=== PATIENT | female | born 1965 | race Caucasian/White ===

== ENCOUNTER 2024-06-26 06:33 | Day surgery (SDC) | payer BC, SELFPAY ==
--- NOTE | 2024-06-25 13:46 | PTCARENOTE ---
No ECG needed per Dr. Cullen.
[2024-06-26] VITALS (17 sets, daily range): BP systolic 91–129; BP diastolic 42–79; BMI 29.1
[2024-06-26] MEDS: CELEBREX 200 MG PO (13:29)
[2024-06-26] MEDS: TYLENOL 1000 MG PO ×2 (13:29→22:36)
[2024-06-26] MEDS: NEURONTIN 300 MG PO (13:29)
[2024-06-26] MEDS: HEPARIN 5000 UNITS SC (13:30)
--- NOTE | 2024-06-26 13:39 | CON.CAR ---
Addendum entered and electronically signed by Marianna Mireles DO 06/26/24 16:27:
I saw and examined the patient.
The Soap Maker's note was reviewed and I agree with the note.
Comment: Patient seen and examined in preoperative holding prior to planned robotic assisted laparoscopic exploration of the abdomen with plan for resection of a pelvic mass and possible BSO with Dr. Curtis today. Patient does not have a cardiac
history but does see her family physician regularly. She has no cardiac history per her report. In preop holding nursing found EKGs from [facility] emergency department earlier this month which showed atrial fibrillation. Patient
denies seeing cardiology in [facility]. She apparently was provided Lopressor 12.5 mg twice daily but has not taken this medication. She denies chest pain or pressure, shortness of breath/dyspnea on exertion, palpitations, fast
heart rates, dizziness/lightheadedness, syncope or near syncope. No history of stroke or TIA. EKG done today in preop holding was normal sinus rhythm and a normal tracing.
General: No acute distress, AAOX3
Neck: Negative JVD
Heart: Regular, Negative S3 positive S1/S2, Negative S4, No murmur
Lungs: CTA b/l, negative wheezes/rales/rhonchi
Abd: Positive BS, NT/ND, neg rebound/rigidity/guarding
Ext: Negative cyanosis/clubbing/edema
Neuro: nonfocal
Plan:
-Presents 06/26/2024 for elective robotic assisted laparoscopic exploration of abdomen with resection of pelvic mass possible bilateral salpingo-oophorectomy
-Recent diagnosis of asymptomatic paroxysmal atrial fibrillation discovered while in emergency department at [facility] 06/12/2024; patient reports that she was unaware of this diagnosis. We discussed diagnosis of atrial fibrillation, pathophysiology,
possible symptoms, and treatment options. We also discussed stroke risk and stroke risk reduction.
-EKG today shows sinus rhythm without ischemic changes.
-CHADS2 Vas score 1 (female)
-Patient is stable from cardiac standpoint to proceed with surgical intervention. No additional testing needed. Would monitor on telemetry intraoperatively and postoperatively. If patient should develop paroxysmal atrial fibrillation IV Lopressor
can be provided as needed.
-Would recommend outpatient cardiology follow-up for echocardiogram as well as outpatient monitor.
-Provided information on discharge instructions for [facility] cardiology as well as [facility] in [place] which is closer to the patient's house.
Original Note:
Consultation
Consultation Request
Date/Time Consultation Requested: 06/26/2024
Date/Time Consultation Performed: 06/26/2024
Requesting Provider: Dr. Jose Harkins
Performing Provider: Jill Meraz PA-C for Dr. Marianna Mireles
Reason for Consultation: Paroxysmal atrial fibrillation/flutter
Medical History
-
History of Present Illness:
Patient is a 59-year-old female with past medical history significant for abnormal uterine bleeding status post hysterectomy 2009, appendicitis with appendectomy 2018, melanoma excision 2015, hyperlipidemia, vitamin D deficiency and paroxysmal
atrial fibrillation. Patient was seen at [facility] ER 06/12/2024 with severe abdominal pain radiating into flank and was diagnosed with ovarian mass. While in the emergency department she had EKGs which demonstrated asymptomatic atrial
fibrillation/flutter with controlled ventricular response. This was a new diagnosis for her. She was provided Lopressor 12.5 mg twice a day upon discharge with recommendation to follow-up with outpatient cardiology. She presented back to emergency
department several days later with abdominal/flank pain and once taken to the OR for laparoscopic attempted resection of ovarian mass. Per her report she was noted to be back in sinus rhythm. She presents today for robotic assisted laparoscopic
exploration of the abdomen with plan for resection of pelvic mass and possible bilateral salpingo-oophorectomy. Cardiology being asked to see patient given recent diagnosis of paroxysmal atrial fibrillation/flutter. EKG today shows normal sinus
rhythm without evidence of ischemia.
Patient denies any past history of any cardiac problems. 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 She does have a history of snoring but denies sleep apnea. She denies chest pain, shortness
breath, dizziness, lightheadedness, edema, orthopnea, PND. Her father had a stroke but she denies any family history of any cardiac issues.
Past Medical History
Past Medical History: Other (see HPI)
Past Surgical History: Appendectomy (2019) and Gynecological (Hysterectomy 2010)
Social History
Tobacco: Non-Smoker
Alcohol: Occasional
Drug: None
Personal:
Living: With Family
Employment: Employed
Family History
Family History: Other (Father at 84 of pulmonary fibrosis, had stroke. Mother unknown/estranged)
Allergies / Home Medications
Allergy/AdvReac Type Severity Reaction Status Date / Time
No Known Allergies Allergy Verified 06/26/24 12:47
�Medication �Instructions �Recorded �Confirmed �Type
polyethylene glycol 3350 17 gram 17 g PO PRE OP 06/25/24 06/26/24 History
oral powder packet (Miralax)
Review of Systems
-
History Source: Patient
All other systems: Negative unless noted
Physical Exam
Vital Signs
Temp Pulse Resp BP Pulse Ox
98.2 F 64 16 122/61 98
06/26/24 12:50 06/26/24 12:50 06/26/24 12:50 06/26/24 12:50 06/26/24 12:50
GEN: No distress, awake, Ox3
HEENT: supple, anicteric, mmm
LUNGS: CTA, no wheezes/rales
CV: Reg, S1/S2, no murmur, rub or gallop
ABD: soft, BS+, NT/ND
EXT: No edema, clubbing or cyanosis
NEURO: Gross non-focal
SKIN: No rash, warm, dry, pink
Impression / Plan
-
PCP: Dr. Khang Weber
Etymology Teacher: None prior to arrival, initial consultation Dr. Marianna Mireles
Impression:
Presents 06/26/2024 with pelvic mass for robotic assisted laparoscopic exploration of abdomen with resection of pelvic mass possible bilateral salpingo-oophorectomy
Paroxysmal atrial fibrillation (new diagnosis June 2024)
CHADS2 Vas score 1 (female)
Abnormal uterine bleeding status post hysterectomy 2009
Appendicitis with appendectomy 2018
Melanoma excision 2015
Hyperlipidemia
Vitamin D deficiency
Plan:
-Presents 06/26/2024 with pelvic mass for robotic assisted laparoscopic exploration of abdomen with resection of pelvic mass possible bilateral salpingo-oophorectomy
-Recent diagnosis of asymptomatic paroxysmal atrial fibrillation discovered while in emergency department at [facility] 06/12/2024. Patient was started on Lopressor 12.5 mg twice a day. Patient reports she took several doses but has not taken it over the
last week.
-EKG today shows sinus rhythm without ischemic changes.
-CHADS2 Vas score 1 (female)
-Patient is stable from cardiac standpoint to proceed with surgical intervention. No additional testing needed. Would monitor on telemetry intraoperatively and postoperatively. If patient should develop paroxysmal atrial fibrillation IV Lopressor
can be provided as needed.
-Would recommend outpatient cardiology follow-up for echocardiogram as well as outpatient monitor.
-Provided information on discharge instructions for [facility] cardiology as well as [facility] in [place] which is closer to the patient's house.
[facility] 06/26/2024:
Patient is a 59-year-old female with past medical history significant for abnormal uterine bleeding status post hysterectomy 2009, appendicitis with appendectomy 2018, melanoma excision 2015, hyperlipidemia, vitamin D deficiency and paroxysmal
atrial fibrillation. Patient was seen at [facility] ER 06/12/2024 with severe abdominal pain radiating into flank and was diagnosed with ovarian mass. While in the emergency department she had EKGs which demonstrated asymptomatic atrial
fibrillation/flutter with controlled ventricular response. This was a new diagnosis for her. She was provided Lopressor 12.5 mg twice a day upon discharge with recommendation to follow-up with outpatient cardiology. She presented back to emergency
department several days later with abdominal/flank pain and once taken to the OR for laparoscopic attempted resection of ovarian mass. Per her report she was noted to be back in sinus rhythm. She presents today for robotic assisted laparoscopic
exploration of the abdomen with plan for resection of pelvic mass and possible bilateral salpingo-oophorectomy. Cardiology being asked to see patient given recent diagnosis of paroxysmal atrial fibrillation/flutter. EKG today shows normal sinus
rhythm without evidence of ischemia.
Patient denies any past history of any cardiac problems. 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 She does have a history of snoring but denies sleep apnea. She denies chest pain, shortness
breath, dizziness, lightheadedness, edema, orthopnea, PND. Her father had a stroke but she denies any family history of any cardiac issues.
Data Reviewed
-
EKG: Report Reviewed by me, Discussed with Physician, Discussed with Nurse, Discussed with Patient and Discussed with Family
Labs: Labs Reviewed by me
Old Records: Reviewed
--- NOTE | 2024-06-26 17:27 | OR.RPT ---
Operative Report
Operative Report
Date of surgery June 26, 2024
Preoperative diagnosis: Right pelvic mass, right lower quadrant and lower abdominal pain, prior failed laparoscopy for attempted removal
Postoperative diagnosis: Right ovarian mass with hemorrhage and edema, histology pending; extensive pelvic adhesions
Surgeon: Eamon Curtis MD
Assist: Joey Newberry PA-C, AFSHIN Amanda
Anesthesia: General Endotracheal intubation
Procedure:
Robotic assisted laparoscopic bilateral salpingo-oophorectomy, pelvic washings
Mini laparotomy for extraction of specimen
Robotic assisted laparoscopic enterolysis
TAP block
Estimated blood loss 20 cc
Complications none
Procedure in detail: This patient was brought to the operating room and placed in supine position general anesthesia was administered she was intubated without any difficulty she was placed in lithotomy position using yellowfin stirrups and prepped
on the abdomen perineum and vagina and upper thighs. Arms were wrapped in foam and placed along the patient's side and protected across all joints. Alvarado catheter was inserted under sterile conditions for drainage of the bladder. Attention was
turned abdominally after she was draped. Timeout procedure was carried out she received combination of Ancef and Flagyl prophylactically. She had received DVT prophylaxis with heparin in the preoperative area. Veress needle was inserted just
below the left subcostal margin and insufflation with CO2 was performed up to pressure of 15 mmHg. Next 8 mm Robotic port was inserted 25 cm cephalad to symphysis pubis in the mid epigastrium. 8 mm robotic ports were placed under direct
visualization in the left upper quadrant and right upper quadrant as well as right and left lateral abdomen.
Inspection of upper abdomen reveals liver stomach and spleen right and left diaphragms falciform ligament to be within normal limits omentum is unremarkable with a thin band of adhesion to umbilicus where recent laparoscopy was completed. Paracolic
gutters and peritoneal surfaces are devoid of any evidence of metastatic disease.
Tap block was performed by injection under direct visualization using combination of 0.5% ropivacaine 30 cc admixed with 30 cc sterile water below rectus muscle and above the peritoneum 2 fingerbreadths below the costal margins laterally.
Patient was placed in 28 degree Trendelenburg and robotic system
Was docked. Attention was turned to the pelvis sigmoid colon was adherent to the bladder and these adhesions were filmy and inflammatory in nature and they were released. There was a loop of small bowel that is adherent to the mesentery of the
sigmoid colon this loop is terminal ileum and was also from the colon and the ovarian mass with gentle traction and sharp dissection. I opened the right and left lateral pelvic peritoneum and broad ligament and identified the old round
ligaments remnants as this patient has had prior hysterectomy. Both of these were sealed and divided and the incisions were extended in the lower portion of the paracolic gutters. We identified the course of the ureter in the retroperitoneum on
both sides and was able to identify infundibulopelvic ligaments containing ovarian artery and veins and skeletonized them. These pedicles were sealed and divided. Following this we worked along the left side. Left tube and ovary was detached from
the larger mass that was filling the posterior cul-de-sac. Once the left tube and ovary was completely detached it was placed in an endoscopic bag for retrieval. The left ovary appeared to be normal but the fallopian tube appeared to be inflamed
and hydrosalpinx. Attention was turned to the right ovarian mass which was gently retracted from right pelvic peritoneum and left pelvic peritoneum as well as anterior and posterior cul-de-sac peritoneum, at 1 point the mass drained spontaneously
because of fibrotic adhesion to the vaginal cuff, once the mass was completely detached it was immediately placed in an endoscopic bag. There were inflammatory adhesions to the sigmoid colon which were biopsied and submitted to pathology and
additional posterior cul-de-sac remnants of the mass that was also detached and submitted to pathology. There was no other abnormal implants in the pelvis. We went ahead and irrigated the pelvis copiously and prepared for mini laparotomy to
extract our specimen. The patient had a prior infraumbilical incision this was extended to approximately 3 cm and opened along the skin subcutaneous tissue and fascia in both the right tube and ovary left tube and ovary was removed and submitted to
pathology for frozen section in the meantime an Basil retractor was placed frozen section reveals presence of a cyst with hemorrhage and edema, microscopic evaluation shows some atypia but definitive adenocarcinoma is not seen and defer to final
pathology. Because of this report I did not perform any additional staging biopsies. I went ahead and irrigated the pelvis copiously and established good hemostasis. We went ahead and sprayed Elvie along the inflammatory surfaces of posterior
cul-de-sac and right and left pelvis. All laparoscopic instruments were removed and the robotic system was undocked and pneumoperitoneum was released. The Basil retractor was removed the fascia for the extraction site was closed with a running
suture of STRATAFIX starting from right to the left and the second layer back to the right side. The skin incisions were closed with 4-0 Monocryl in a subcuticular fashion. All incisions were injected with 0.25% bupivacaine at the completion of
the procedure. Patient was awakened extubated and returned back to recovery room stable awake and extubated condition. Counts of labs instruments and needle was correct x 2. I removed the Alvarado catheter and a sponge stick from the vagina at the
completion of the case.
Disposition to PACU stable awake extubated
[2024-06-26] MEDS: DILAUDID 0.5 MG IV ×2 (17:40→18:18)
[2024-06-26] MEDS: TORADOL 15 MG IV (18:06)
--- NOTE | 2024-06-26 19:07 | HPS.HSE ---
Family Physician
-
Family Physician: Khang Weber,DO
Chief Complaint
-
medical managment
History of Present Illness
59-year-old female with past medical history significant for abnormal uterine bleeding status post hysterectomy 2009, appendicitis with appendectomy 2018, melanoma excision 2015, hyperlipidemia, vitamin D deficiency and paroxysmal atrial
fibrillation admitting for medical management. Patient was seen at [facility] ER 06/12/2024 with severe abdominal pain radiating into flank and was diagnosed with ovarian mass. While in the emergency department she had EKGs which demonstrated asymptomatic
atrial fibrillation/flutter with controlled ventricular response. This was a new diagnosis for her. She was provided Lopressor 12.5 mg twice a day upon discharge with recommendation to follow-up with outpatient cardiology. she never took
metoprolol as her heart rate was stable since then. She underwent robotic assisted laparoscopic exploration of the abdomen resection of pelvic mass and possible bilateral salpingo-oophorectomy. she had brief period of atrial fib during recovery
but since then remaining NSR. patient denied any [place], dizzy. denied fever, chills, chest pain, sob. denied dysuria or hematuria.
admitting for further management.
Medical History
Past Medical History
Past Medical History: Reports Other
Additional Past Medical History:
none
Past Surgical History: Reports Other
Additional Past Surgical History:
appendectomy
hysterectomy
Social History
Tobacco: Non-smoker
Alcohol: None
Drug: None
Family History
Family History: Not pertinent
Allergies / Home Medications
Allergies reflects when Allergies were last updated in [employer].
Home Medications with original date entered in [employer]
Allergy/Medication List:
Allergies
Allergy/AdvReac Type Severity Reaction Status Date / Time
No Known Allergies Allergy Verified 06/26/24 12:47
Home Medications
polyethylene glycol 3350 17 gram oral powder packet (Miralax) 17 g PO PRE OP 06/25/24
Review of Systems
-
Constitutional: Reports No Symptoms
EENT: Reports No Symptoms
Respiratory: Reports No Symptoms
Cardiac: Reports No Symptoms
Abdomen/GI: Reports No Symptoms
: Reports No Symptoms
Musculoskeletal: Reports No Symptoms
Skin: Reports No Symptoms
Neurological: Reports No Symptoms
Endocrine: Reports No Symptoms
Hematologic/Lymphatic: Reports No Symptoms
Psych: Reports No Symptoms
Physical Exam
Vital Signs
Vital Signs
Temp Pulse Resp BP Pulse Ox
97.9 F 70 17 97/53 96
06/26/24 17:19 06/26/24 19:00 06/26/24 19:00 06/26/24 19:00 06/26/24 19:00
Physical Exam
General: Well Developed, Well Nourished and No Apparent Distress
HEENT: NormoCephalic, Moist mucous membranes and Atraumatic
Respiratory: Clear
Cardiac: S1/S2 and Regular Rhythm; No Murmur or Rub
GI: Soft, Non Tender, Non Distended, Normal Bowel Sounds and Other (lap site); No Organomegaly
Rectal: Deferred by Provider
Musculoskeletal: No Clubbing, No Cyanosis and No Edema
Skin: No Rash
Neuro: AO x 3 and Nonfocal/grossly intact
Psych: Calm
Data Reviewed
-
Lab Data: Labs Reviewed by me
Impression/Plan
-
# Paroxysmal atrial fib
-EKG was sinus rhythm without ischemic change
-As per cardiology continue to monitor, if should develop paroxysmal A-fib IV Lopressor can be provided as needed
-Patient to follow-up with outpatient cardiology for echocardiogram as well as outpatient monitor
# Large cystic mass
-Into robotic assisted laparoscopic bilateral salpingo oophorectomy, pelvic washing
-FURNITURE SALES ASSOCIATE following patient
-pain management as per surgery
#acute hypoxia
-requiring 2l
-chest x ray obtain
-continue supplemental oxygen to keep sat>92
-wean as tolerated
#anemia likely chronic
-hgb 10.6
-no active
#DVT prophylaxis
-scd
#CODE status
-full code
[2024-06-26 19:31] LABS: Hematocrit 32.6 % (37.0-47.0); Hemoglobin 10.6 g/dL (12.0-16.0); Mean Corp Hgb Conc. 32.5 g/dL (33.0-37.0); Mean Corpuscular Hgb 24.9 pg (27.0-31.0); Mean Corpuscular Volume 76.5 fL (81.0-99.0); Mean Platelet Volume 9.5 fL (7.4-10.4); Platelet Count 278 10^3/uL (130-400); Red Blood Cell Count 4.26 10^6/uL (4.20-5.40); Red Cell Dist. Width 14.6 % (11.5-14.5); White Blood Cell Count 9.4 10^3/uL (4.8-10.8)
[2024-06-26 19:44] LABS: Blood Urea Nitrogen 11 mg/dl (7-17); Calcium 7.9 mg/dl (8.4-10.2); Carbon Dioxide 23 mmol/L (22-30); Chloride 104 mmol/L (98-107); Estimated Creatinine Clearance 84 ml/min; Glucose 130 mg/dl (70-99); Magnesium 2.2 mg/dl (1.6-2.3); Potassium 4.1 mmol/L (3.5-5.1); Sodium 137 mmol/L (135-145); eGFR > 60.00
--- NOTE | 2024-06-26 20:20 | W.PN.UPDATE ---
Update Note
Progress Note Update
This is an addendum to the H&P written by she was sent on 06/26/2024.
59-year-old female past medical history of abnormal uterine bleeding status post partial hysterectomy 2009, melanoma excision, hyperlipidemia, recently diagnosed with paroxysmal atrial fibrillation in 06/12 in the emergency room at [facility] (unknown to
her) for abdominal pain at which time she was found to have ovarian mass.
Patient underwent robotic assisted laparoscopic bilateral salpingo-oophorectomy today and afterwards developed postoperative intermittent atrial fibrillation with normal heart rate. She also had low oxygen saturation requiring 2 L of oxygen. Blood
pressures are 90s systolic.
Patient was seen by cardiology prior to surgery recommending as needed IV Lopressor for tachycardia as needed.
Observation overnight. Continue IV fluids. Check chest x-ray to rule out CHF.
--- NOTE | 2024-06-26 22:00 | PTCARENOTE ---
Pt received from PACU via stretcher. Pulled over to bed x2 without incident. AAOx3, pleasant. Telemetry = afib (100s). Oriented to surroundings and plan of care discussed. Admission and assessment completed. Pt consumed 50% of boxed lunch
provided. ACCOUNTING PROFESSOR covering house contacted to address pain medication orders - electronic orders received (refer to MAR). 8 lap sites to abdomen - intact/ecchymotic. Pt OOB w/assist x1 to void. Voided 100 mL clear yellow (voided 300 mL in PACU
prior to arrival). Knee high SCDs in place. #18 LH w/NSS at 80mL. Call powell within reach. Plan of care ongoing.
--- NOTE | 2024-06-26 22:18 | W.PN.GYNONC ---
Today's Communication
-
NA
Impression / Plan
-
Hospitalist consultation, appreciate assistance with care
Observe overninght
telemetry
incentive spirometer
lopressor IV as per cardiology
lytes normal, no change in Hgb
general diet
Subjective / Interval History
-
POD 0
s/p robotic Lap BSO, entrloysis, minilap
was noted to have slow O2 requiring 2 L NC in SDS
also was in and out of A fib.
Objective Data
-
Lab Results:
06/26/24 19:25
06/26/24 19:25
Physical Exam
Vital Signs / I&O
Vitals
Temp Pulse Resp BP Pulse Ox
98.3 F 102 16 128/79 97
06/26/24 20:40 06/26/24 20:40 06/26/24 20:40 06/26/24 20:40 06/26/24 20:40
I&O
06/24/24 06/25/24 06/26/24 06/27/24
06:59 06:59 06:59 06:59
Intake Total 300 / 300
Output Total 300 / 300
Balance 0 / 0
Physical Exam
General: Well Developed and No Apparent Distress
Respiratory: Clear
Cardiac: S1/S2 and Regular Rhythm
Musculoskeletal: No Clubbing and No Cyanosis
Neuro: Awake, Alert, Oriented and AO x 3
Data Reviewed
-
Lab Data: Labs Reviewed and Discussed with Physician
--- NOTE | 2024-06-26 22:35 | PTCARENOTE ---
Pt noted to now be in SR via telemetry. HR 60s.
[2024-06-26] MEDS: NSS 1000 IV (22:36)
[2024-06-27] MEDS: TORADOL 15 MG IV ×2 (02:18→10:26)
[2024-06-27 03:00] VITALS: BP 112/50
[2024-06-27 07:06] LABS: Hematocrit 33.8 % (37.0-47.0); Hemoglobin 10.8 g/dL (12.0-16.0); Mean Corpuscular Hgb 24.5 pg (27.0-31.0); Mean Corpuscular Volume 76.8 fL (81.0-99.0); Mean Platelet Volume 10.3 fL (7.4-10.4); Platelet Count 296 10^3/uL (130-400); Red Cell Dist. Width 14.6 % (11.5-14.5); White Blood Cell Count 9.2 10^3/uL (4.8-10.8)
[2024-06-27 07:16] LABS: Blood Urea Nitrogen 13 mg/dl (7-17); Calcium 8.6 mg/dl (8.4-10.2); Carbon Dioxide 24 mmol/L (22-30); Chloride 106 mmol/L (98-107); Estimated Creatinine Clearance 84 ml/min; Glucose 181 mg/dl (70-99); Potassium 4.3 mmol/L (3.5-5.1); Sodium 137 mmol/L (135-145); eGFR > 60.00
[2024-06-27 07:25] VITALS: BP 102/51
[2024-06-27] MEDS: MOTRIN 600 MG PO (09:09)
--- NOTE | 2024-06-27 10:25 | W.PN.GYNONC ---
Today's Communication
-
DC home
instructions reviewed
Impression / Plan
-
I note she is doing well this am except some incisional pain
I recommended around the clock tylenol and motrin
she needs to ambulate 10 min x 3 times a day
plan for follow up in 2 weeks with me
I recommend she does start lopressor 12.5 mg po BID as had been prescribed to her previously'
I have reviewed discharge instructions with her.
Eamon Curtis MD
Subjective / Interval History
-
POD 1
OR procedures and findings discussed
she has some mid abdominal pain related to extraction site
voiding ok
denies dyspnea or chest pain
Objective Data
-
Lab Results:
06/27/24 06:12
06/27/24 06:12
Physical Exam
Vital Signs / I&O
Vitals
Temp Pulse Resp BP Pulse Ox
98.5 F 69 16 102/51 95
06/27/24 07:25 06/27/24 07:25 06/27/24 07:25 06/27/24 07:25 06/27/24 07:25
I&O
06/25/24 06/26/24 06/27/24 06/28/24
06:59 06:59 06:59 06:59
Intake Total 540 / 540
Output Total 700 / 700 300 / 300
Balance -160 / -160 -300 / -300
Physical Exam
General: No Apparent Distress
Respiratory: Clear and Non Labored Respirations
Cardiac: S1/S2 and Regular Rhythm
GI: Soft and Normal Bowel Sounds
Musculoskeletal: No Clubbing, No Cyanosis and No Edema
Neuro: Awake, Alert, Oriented and AO x 3
Psych: Calm and Intact Judgement
Data Reviewed
-
Lab Data: Labs Reviewed
[2024-06-27 10:38] LABS: Vitamin B12 480 pg/ml (239-931)
[2024-06-27 10:40] LABS: Total Iron Binding Capacity 247 ug/dl (265-497)
[2024-06-27 10:41] LABS: Glycohemoglobin (HgbA1c) 6.1 % (4.0-5.6)
[2024-06-27 10:50] LABS: Iron < 20 ug/dl (37-170)
--- NOTE | 2024-06-27 11:07 | CM ---
Chart reviewed and patient lives with spouse in a 2 story home, patient is independent with adl's and ambulation, no dme, patient drives.
Pharmacy: [facility]
PCP: Dr. Khang Weber
Plan; Home when stable, no needs.
[2024-06-27 11:30] VITALS: BP 113/52
--- NOTE | 2024-06-27 11:53 | W.PN.HOSP.TC ---
Today's Communication/Plan
-
Discharge
Assessment / Plan
Assessment / Plan
59-year-old underwent robotic assisted exploration of the abdomen, resection of pelvic mass and bilateral salpingo nephrectomy. She had a brief episode of A-fib during the recovery then remained in sinus rhythm. Admitted for further management.
CVS: S1-S2 normal
Chest: CTA B/L
Abdomen: Soft, lap wounds stable, Bowel sounds present
Extremities: No edema, normal pulses
HOOP COILER: Non focal exam
# Paroxysmal atrial fibrillation
1 episode postoperatively
EKG in sinus rhythm
Lopressor 12.5 mg BID
Cardiology evaluated and outpatient echo and monitor recommended
# Acute hypoxic respiratory insufficiency
Chest x-ray left basilar atelectasis
Postop
Likely atelectasis
Off O2
Incentive spirometry encouraged.
# Anemia-
Severe Iron deficiency noted.
Needs replacement
OP GI Follow up also needed
# Hyperglycemia-Hemoglobin A1c 6.1
# Large cystic mass
Status post robotic assisted laparoscopic bilateral salpingo-oophorectomy, pelvic washings, Mini laparotomy for extraction of specimen,Robotic assisted laparoscopic enterolysis
Management per ERP ANALYST
# DVT prophylaxis-SCDs
# Full code
D/W - For discharge today
Anticipated Discharge: Today
Subjective/Interval History
-
Date of Service: June 27, 2024
Objective Data
-
Labs:
Laboratory Results
06/27/24
06:12
WBC 9.2
Hgb 10.8 L
Hct 33.8 L
Plt Count 296
Sodium 137
Potassium 4.3
Chloride 106
Carbon Dioxide 24
BUN 13
Creatinine 0.8
Glucose 181 H
Calcium 8.6
Vital Signs:
Vital Signs
Temp Pulse Resp BP Pulse Ox
98.5 F 69 16 102/51 95
06/27/24 07:25 06/27/24 07:25 06/27/24 07:25 06/27/24 07:25 06/27/24 07:25
I&O
06/26/24 06/27/24 06/28/24
06:59 06:59 06:59
Intake Total 540 / 540
Output Total 700 / 700 300 / 300
Balance -160 / -160 -300 / -300
[2024-06-27] MEDS: TYLENOL 650 MG PO (12:04)
[2024-06-27 19:49] LABS: Hepatitis C Antibody Negative (Negative)
== END 2024-06-27 14:03 | disposition home or self-care (01) ==
LOC: SDS 06:33
PROVIDERS: Registered Nurse; ATTENDING PHYSICIAN Hospitalist; CONSULT PHYSICIAN Internal Medicine Cardiovascular Disease; CONSULT PHYSICIAN Obstetrics & Gynecology Gynecologic Oncology; FAMILY PHYSICIAN Anesthesiology
DX: N70.01 Acute salpingitis (principal); N70.11 Chronic salpingitis; N83.8 Other noninflammatory disorders of ovary, fallopian tube and broad ligament; I48.0 Paroxysmal atrial fibrillation; E55.9 Vitamin D deficiency, unspecified; N73.6 Female pelvic peritoneal adhesions (postinfective); N93.9 Abnormal uterine and vaginal bleeding, unspecified; R09.02 Hypoxemia; D64.9 Anemia, unspecified; E78.5 Hyperlipidemia, unspecified
CPT/HCPCS: 58661; 49321; 88305; 88332; 71045; 80048; 82607; 82728; 83036; 83540; 83550; 83735; 85027; 86803; 86850; 86900; 86901; 88112; 88331; 88341; 88342; 93005